=== PATIENT | male | born 1995 | race Caucasian/White ===

== ENCOUNTER 2025-02-22 07:47 | Emergency (ER) | payer SELFPAY ==
[~2025-02-22] VITALS: Ht 172.7 cm; Wt 86.2 kg
[2025-02-22 08:58] LABS: PLATELET COUNT (AUTO) 309 K/uL (152-348); RED BLOOD CELL COUNT(AUTO) 5.72 MIL/uL (4.06-5.63); RED CELL DISTRIBUTION WIDTH 14.5 % (12.1-16.2); WHITE BLOOD COUNT (AUTO) 11.9 K/uL (3.6-10.2)
[2025-02-22 09:10] LABS: CREATININE 0.8 mg/dL (0.6-1.3); SODIUM SERUM 137 mmol/L (136-145); UREA NITROGEN, BLOOD 20 mg/dL (7-18)
[2025-02-22 09:15] LABS: ASPARTATE AMINOTRANSFERASE 60 U/L (15-37); TOTAL PROTEIN, SERUM 8.1 g/dL (6.4-8.2)
[2025-02-22] MEDS ORDERED: NEOMY/BACITRA/POLYMYXIN B OINT UD PACKET TP ONE (10:27)
[2025-02-22] MEDS: IV NORMAL SALINE 1000 ML BAG IV ONE (10:28)
[2025-02-22] MEDS: NEOMY/BACITRA/POLYMYXIN B OINT UD PACKET TP ONE (10:40)
[2025-02-22] MEDS ORDERED: CICL15CR12 TP (10:49)
[2025-02-22] MEDS ORDERED: KETOROLAC TROMETHAMINE 15 MG INJ ONE (11:03)
[2025-02-22] MEDS: KETOROLAC TROMETHAMINE 15 MG INJ IVP ONE (11:08)
[2025-02-22] MEDS ORDERED: SWABABLE VALVE TRANSFER SET EA MC ONE (12:44)
[2025-02-22] MEDS ORDERED: IOHEXOL 350 100 ML INFUS..BTL ONE (12:44)
[2025-02-22] MEDS ORDERED: IV NORMAL SALINE 250 ML IV ONE (12:45)
[2025-02-22] MEDS: ONDANSETRON 4 MG/2 ML VIAL IV ONE (12:58)
[2025-02-22] MEDS ORDERED: ONDANSETRON 4 MG/2 ML VIAL ONE (12:58)
[2025-02-22] MEDS ORDERED: ALPR1TAB7 PO (16:01)
[2025-02-22 16:21] VITALS: BP 117/71
[2025-02-22 16:32] VITALS: BP 117/71; TEMP 98; O2SAT 98
[2025-02-23] MEDS ORDERED: ACET-2605 PO (00:03)
[2025-02-23] MEDS ORDERED: IBUP-2760 PO (00:03)
== END 2025-02-22 16:32 | disposition home or self-care (01) ==
LOC: ER 07:47
DX: R07.89 Other chest pain (principal); E86.0 Dehydration; R79.89 Other specified abnormal findings of blood chemistry; B35.3 Tinea pedis; F17.200 Nicotine dependence, unspecified, uncomplicated; F41.9 Anxiety disorder, unspecified
CPT/HCPCS: 99291; 96374; 96361; 71275; 71045; 96375; 80076; 80048; 83880; 85025; 85379; 85730; 84484; 36415; 93005; J1885; J2405; Q9967; J7040 ×3; A4606

== ENCOUNTER 2025-02-22 23:45 | Emergency (ER) | payer SELFPAY ==
[~2025-02-22] VITALS: Ht 172.7 cm; Wt 90.3 kg
[~2025-02-22 23:45] MED LIST: ALPR1TAB7 PO; CICL15CR12 TP
[2025-02-22 23:52] VITALS: BP 118/74
[2025-02-23] MEDS ORDERED: IBUP-2760 PO (00:03)
[2025-02-23] MEDS ORDERED: ACET-2605 PO (00:03)
[2025-02-23] MEDS ORDERED: ACETAMINOPHEN 500 MG TABLET ONE (00:10)
[2025-02-23] MEDS ORDERED: ONDANSETRON ODT 4 MG TAB.RAPDIS ONE (00:11)
[2025-02-23] MEDS ORDERED: NAPROXEN 500 MG TABLET ONE (00:11)
[2025-02-23] MEDS: NAPROXEN 500 MG TABLET PO ONE (00:22)
[2025-02-23] MEDS: ACETAMINOPHEN 500 MG TABLET PO ONE (00:22)
[2025-02-23] MEDS: ONDANSETRON ODT 4 MG TAB.RAPDIS SL ONE (00:23)
[2025-02-23 02:59] VITALS: BP 121/75; O2SAT 98
== END 2025-02-23 01:45 | disposition home or self-care (01) ==
LOC: ER 23:56
DX: R07.89 Other chest pain (principal); F17.200 Nicotine dependence, unspecified, uncomplicated; F41.9 Anxiety disorder, unspecified; Z79.899 Other long term (current) drug therapy; Z20.822 Contact with and (suspected) exposure to COVID-19
CPT/HCPCS: A4606; A4663; A9150; Q0162